=== PATIENT | female | born 1970 | race Caucasian/White ===

== ENCOUNTER 2016-12-03 20:45 | Outpatient (CLI) | payer OTHER | END 2016-12-03 20:46 | disposition home or self-care (01) | DX: G47.33 Obstructive sleep apnea (adult) (pediatric) (principal); G47.61 Periodic limb movement disorder; Z68.35 Body mass index [BMI] 35.0-35.9, adult ==

== ENCOUNTER 2016-12-27 14:05 | Outpatient (CLI) | payer OTHER | END 2016-12-27 14:06 | disposition home or self-care (01) | DX: G47.33 Obstructive sleep apnea (adult) (pediatric) (principal); G47.61 Periodic limb movement disorder ==